=== PATIENT | male | born 1960 | race Caucasian/White ===

== ENCOUNTER 2018-08-27 15:41 | Emergency (ER) | payer OTHER ==
[~2018-08-27] VITALS: Ht 177.8 cm; Wt 92.1 kg
[~2018-08-27 15:41] MED LIST: AMBIEN10 MG; ATIVAN0.5 M1; BUPROPION HCL150 MG; CARDIZEM LA240 MG PO
== END 2018-08-27 18:32 | disposition home or self-care (01) ==
LOC: ER 15:41
DX: H11.012 Amyloid pterygium of left eye (principal); B99.8 Other infectious disease; H10.89 Other conjunctivitis

== ENCOUNTER 2018-09-06 17:57 | Emergency (ER) | payer OTHER ==
[~2018-09-06] VITALS: Ht 175.3 cm; Wt 93.0 kg
== END 2018-09-06 19:19 | disposition home or self-care (01) ==
LOC: ER 17:57
DX: N20.0 Calculus of kidney (principal); R10.2 Pelvic and perineal pain

== ENCOUNTER 2020-05-23 09:06 | Emergency (ER) | payer OTHER ==
[~2020-05-23] VITALS: Ht 177.8 cm; Wt 99.8 kg
[2020-05-23] MEDS ORDERED: PROPAFENONE HC225 M1 (09:20)
[2020-05-23] MEDS ORDERED: FLAGYL500MG PO (12:16)
[2020-05-23] MEDS ORDERED: CIPRO500 MG PO (12:16)
[2020-05-23] MEDS ORDERED: PEPCID AC20 MG PO (12:16)
[2020-05-23] MEDS ORDERED: INTESTINEX680 M1 PO (12:16)
== END 2020-05-23 15:16 | disposition home or self-care (01) ==
LOC: ER 09:06
DX: K52.9 Noninfective gastroenteritis and colitis, unspecified (principal); B96.0 Mycoplasma pneumoniae [M. pneumoniae] as the cause of diseases classified elsewhere